=== PATIENT | male | born 1970 | race Caucasian/White ===

== ENCOUNTER 2016-04-18 09:30 | Inpatient (IN) | payer BC, OTHER ==
[2016-04-18 09:59] VITALS: BMI 26.3
[2016-04-18] MEDS ORDERED: PNEUMOC 13-VAL CONJ-DIP CRM/PF 0.5 ML DISP.SYRIN IM ONE (10:50)
[2016-04-18] MEDS ORDERED: PNEUMOCOCCAL 23 VACCINE 0.5 ML VIAL IM ONE (12:00)
--- NOTE | 2016-04-18 12:36 | HP ---
COWS - Scale Resting Pulse: 1= MA 81-100 Sweatin=Flushed/Facial Moisture Restless Observation: 1= Difficult to Sit Still Pupil Size: 2= Moderately Dilated Bone or Joint Aches: 2= Severe Diffuse Aches Runny Nose/ Eye Tearin= Runny Nose/Eyes GI Upset > 30mins: 2= Nausea/Diarrhea Tremor Observation: 2= Slight Tremor Visible Yawning Observation: 1= 1-2x During Session Anxiety or Irritability: 2=Irritable/Anxious Goose Flesh Skin: 3=Piloerection COWS Score: 20 CIWA Score - CIWA Score Nausea/Vomitin Muscle Tremors: 4-Moderate,w/Arms Extend Anxiety: 4-Mod. Anxious/Guarded Agitation: 4-Moderately Restless Paroxysmal Sweats: 3 Orientation: 0-Oriented Tacttile Disturbances: 1-Very Mild Itch/Numbness Auditory Disturbances: 0-None Visual Disturbances: 0-None Headache: 0-None Present CIWA-Ar Total Score: 18 Admission ROS BHS - HPI Chief Complaint: WITHDRAWAL SX. Allergies/Adverse Reactions: Allergies Allergy/AdvReac Type Severity Reaction Status Date / Time Fish Containing Products Allergy Severe Difficulty Verified 04/18/16 10:27 Breathing History of Present Illness: 45 Y/O MAN WITH A LONG HX. OF DRUG DEPENDENCE IS ADMITTED FOR DETOX. PT. HAS BEEN IN PREVIOUS DETOX, REPORTS 3 YRS. DRUG FREE. Exam Limitations: No Limitations - Ebola screening Have you traveled outside of the country in the last 21 days: No (N) Have you had contact with anyone from an Ebola affected area: No Have you been sick,other than usual withdrawal symptoms: No Do you have a fever: No - Review of Systems Constitutional: Diaphoresis EENT: reports: Nose Congestion Respiratory: reports: No Symptoms reported Cardiac: reports: No Symptoms Reported GI: reports: Nausea : reports: No Symptoms Reported Musculoskeletal: reports: Back Pain Integumentary: reports: Sweating Neuro: reports: Seizure, Tingling, Tremors Endocrine: reports: No Symptoms Reported Hematology: reports: No Symptoms Reported Psychiatric: reports: No Sypmtoms Reported Other Systems: Reviewed and Negative Patient History - Patient Medical History Hx Anemia: Yes (? ON FEOSOL HS) Hx Asthma: No Hx Chronic Obstructive Pulmonary Disease (COPD): No Hx Cancer: No Hx Cardiac Disorders: No Hx Congestive Heart Failure: No Hx Hypertension: No Hx Hypercholesterolemia: No Hx Pacemaker: No HX Cerebrovascular Accident: No Hx Seizures: Yes (r/t xanax use 10yrs ago) Hx Dementia: No Hx Diabetes: No Hx Gastrointestinal Disorders: No Hx Liver Disease: No Hx Genitourinary Disorders: No Hx Sexually Transmitted Disorders: No Hx Renal Disease (ESRD): No Hx Thyroid Disease: No Hx Human Immunodeficiency Virus (HIV): No Hx Hepatitis C: No (HEP B) Hx Depression: Yes Hx Suicide Attempt: No Hx Bipolar Disorder: No Hx Schizophrenia: No - Patient Surgical History Past Surgical History: No Hx Neurologic Surgery: No Hx Cataract Extraction: No Hx Cardiac Surgery: No Hx Lung Surgery: No Hx Breast Surgery: No Hx Breast Biopsy: No Hx Abdominal Surgery: No Hx Appendectomy: No Hx Cholecystectomy: No Hx Genitourinary Surgery: No Hx Section: No Hx Orthopedic Surgery: No Anesthesia Reaction: No - PPD History Previous Implant?: Yes Documented Results: Negative w/o proof Implanted On Prior [facility] Admission?: No PPD to be Administered?: Yes - Smoking Cessation Smoking history: Current every day smoker Have you smoked in the past 12 months: Yes Aproximately how many cigarettes per day: 20 Hx Chewing Tobacco Use: No Initiated information on smoking cessation: Yes 'Breaking Loose' booklet given: 04/18/16 - Substance & Tx. History Hx Alcohol Use: No Hx Substance Use: Yes Substance Use Type: Heroin, Tranquilizers Hx Substance Use Treatment: Yes (DETOX) - Substances Abused Heroin Route: Injection Frequency: Daily Amount used: 10 bags Age of first use: 32 Date of Last Use: 04/17/16 Alprazolam (Xanax) Route: Oral Frequency: Daily Amount used: 2mg pills Age of first use: 41 Date of Last Use: 04/17/16 Family Disease History - Family Disease History Family Disease History: Heart Disease: Grandparent (HTN), CA: Father (THROAT) Admission Physical Exam BHS - Vital Signs Vital Signs: Vital Signs - 24 hr 04/18/16 09:58 Temperature 96.5 F L Pulse Rate 84 Respiratory 20 Rate Blood Pressure 126/72 - Physical General Appearance: Yes: Tremorous, Irritable, Sweating, Anxious HEENTM: Yes: Nasal Congestion, Rhinorrhea Respiratory: Yes: Chest Non-Tender, Lungs Clear, Normal Breath Sounds Neck: Yes: Supple Breast: Yes: Breast Exam Deferred Cardiology: Yes: Regular Rhythm, Regular Rate, S1, S2 Abdominal: Yes: Normal Bowel Sounds, Non Tender, Soft Genitourinary: Yes: Within Normal Limits Back: Yes: Within Normal Limits Musculoskeletal: Yes: full range of Motion Extremities: Yes: Tremors Neurological: Yes: Fully Oriented, Alert Integumentary: Yes: Diaphoresis, Track [place] Lymphatic: Yes: Within Normal Limits - Diagnostic (1) Opioid dependence with withdrawal Current Visit: Yes Status: Acute (2) Sedative, hypnotic or anxiolytic dependence with withdrawal, uncomplicated Current Visit: Yes Status: Acute Cleared for Admission [facility] - Detox or Rehab [facility] Level of Care: Medically Managed Detox Regimen/Protocol: Methadone/Valium [facility] Breath Alcohol Content Breath Alcohol Content: 0 Urine Drug Screen - Results Drug Screen Negative: No Urine Drug Screen Results: MEENA-Cocaine, OPI-Opiates, TCA-Tricyclic Antidepress, OXY-Oxycodone
[2016-04-18] MEDS ORDERED: NICOTINE POLACRILEX 2 MG GUM BUC PRN (12:45)
[2016-04-18] MEDS ORDERED: LOPERAMIDE HCL 2 MG CAPSULE PO PRN (12:45)
[2016-04-18] MEDS ORDERED: ACETAMINOPHEN 325 MG TABLET (FP) PO PRN (12:45)
[2016-04-18] MEDS ORDERED: MAGNESIUM CITRATE 300 ML BOTTLE PO PRN (12:45)
[2016-04-18] MEDS ORDERED: IBUPROFEN 400 MG TABLET (FP) PO PRN (12:45)
[2016-04-18] MEDS ORDERED: guaiFENesin/D-METHORPHAN HB 10 ML UNIT-DOSE CUPS PO PRN (12:45)
[2016-04-18] MEDS ORDERED: MENTHOL/PHENOL 1 EACH UD MM PRN (12:45)
[2016-04-18] MEDS ORDERED: MAGNESIUM HYDROX 2400MG/30ML ORAL SUSPENSION 30 ML CUP PO PRN (12:45)
[2016-04-18] MEDS ORDERED: hydrOXYzine PAMOATE 50 MG CAPSULE (FP) PO PRN (12:45)
[2016-04-18] MEDS ORDERED: MAG HYDROX/AL HYDROX/SIMETH 30 ML UNIT-DOSE CUP PO PRN (12:45)
[2016-04-18] MEDS ORDERED: diazePAM 5 MG TABLET PO PRN (12:45)
[2016-04-18] MEDS ORDERED: P-EPHED 60MG/TRIPROLIDI 2.5MG TABLET PO PRN (12:45)
[2016-04-18 13:16] LABS: URINE APPEARANCE CLEAR; URINE BILIRUBIN NEGATIVE (NEGATIVE); URINE BLOOD NEGATIVE (NEGATIVE); URINE COLOR YELLOW; URINE GLUCOSE (UA) NEGATIVE (NEGATIVE); URINE KETONE TRACE (NEGATIVE); URINE LEUK ESTERASE NEGATIVE (NEGATIVE); URINE NITRITE NEGATIVE (NEGATIVE); URINE PROTEIN NEGATIVE (NEGATIVE); URINE UROBILINOGEN NEGATIVE E.U./dl (0.2-1.0)
[2016-04-18] MEDS ORDERED: diazePAM 5 MG TABLET PO ONE (13:30)
[2016-04-18] MEDS ORDERED: METHADONE HCL 10 MG TABLET (FOR DETOX USE ONLY) PO ONE ×2 (13:30→23:00)
[2016-04-18] MEDS: NICOTINE 21 MG/24 HOURS TOPICAL PATCH TD SCH (13:38)
[2016-04-18] MEDS: diazePAM 5 MG TABLET PO SCH ×2 (13:55→22:05)
[2016-04-18] MEDS: FERROUS SO4 325 MG TABLET (FP) PO SCH (22:05)
[2016-04-18] MEDS: THIAMINE HCL 100 MG TABLET (FP) PO SCH (22:05)
[2016-04-18] MEDS: diphenhydrAMINE HCL 50 MG CAPSULE PO PRN (22:06)
[2016-04-19] MEDS: diazePAM 5 MG TABLET PO SCH ×3 (05:41→22:10)
--- NOTE | 2016-04-19 09:35 | CONSULT ---
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 Smoking history: Current every day smoker. Have you smoked in the past 12 months: Yes. Aproximately how many cigarettes per day: 20. Hx Chewing Tobacco Use: No. Initiated information on smoking cessation: Yes. 'Breaking Loose' booklet given: 04/18/16. - Substance & Tx. History. Hx Alcohol Use: No. Hx Substance Use: Yes. Substance Use Type : Heroin, Tranquilizers. Hx Substance Use Treatment: Yes (DETOX). - Substances Abused. Heroin. Route: Injection. Frequency: Daily. Amount used: 10 bags. Age of first use: 32. Date of Last Use: 04/17/16. Alprazolam (Xanax). Route: Oral. Frequency: Daily. Amount used: 2mg pills. Age of first use: 41. Date of Last Use: 04/17/16 Medical History: Significant for history of Anemia, Substance-Induced seizure and Hepatitis B. Smokes cigarettes 1ppd Psychiatric History: His first psychiatric contact was in childhood for treatment of anxiety and ADHD. He was prescribed Ritalin but claims he was not taken it though her mother was giving it to him. Then in 2012 while admitted to [facility] for 3 months for inpatient rehab, he was treated for anxiety and insomnia with Buspar 15 mg po HS, Prozac 20 mg po daily, Seroquel 50 mg po HS and Trazadone 100 mg po HS. Reports that he continues to take these medications now prescribed by his PCP. Claims he last took then the day of admission. Denies previous psychiatric hospitalizaton or suicidal attempt Physical/Sexual Abuse/Trauma History: Denies history of physical, sexual abuse as well DV relationship Additional Comment: Reports history of 5 previous arrests including one felony conviction. Denies being on probation/parole at present Mental Status Exam - Mental Status Exam Alert and Oriented to: Time, Place, Person Cognitive Function: Fair Patient Appearance: Well Groomed Mood: Hopeful, Euthymic Patient Behavior: Cooperative Speech Pattern: Clear Voice Loudness: Normal Thought Process: Intact Thought Disorder: Not Present Hallucinations: Denies Suicidal Ideation: Denies Homicidal Ideation: Denies Insight/Judgement: Fair Sleep: Poorly Appetite: Fair Muscle strength/Tone: Normal Gait/Station: Normal Psychiatric Findings - Problem List ([place] 1, 2,3) (1) ADHD (attention deficit hyperactivity disorder) Current Visit: Yes Status: Acute (2) Anxiety disorder Current Visit: Yes Status: Acute (3) Substance-induced sleep disorder Current Visit: Yes Status: Acute (4) Sedative, hypnotic or anxiolytic dependence with withdrawal, unspecified Current Visit: Yes Status: Acute (5) Opioid dependence with withdrawal Current Visit: Yes Status: Acute (6) Hepatitis B Current Visit: Yes Status: Acute (7) Anemia Current Visit: Yes Status: Acute - Initial Treatment Plan Initial Treatment Plan: 1) Continue Buspar 15 mg po HS, Prozac 20 mg po daily, Seroquel 50 mg po HS and Trazadone 100 mg po HS. 2) Continue detoxification
[2016-04-19] MEDS ORDERED: METHADONE HCL 10 MG TABLET (FOR DETOX USE ONLY) PO SCH (10:00)
[2016-04-19] MEDS: PRENATAL VITAMINS W/ FOLIC ACID TABLET (FP) PO SCH (10:19)
[2016-04-19] MEDS: NICOTINE 21 MG/24 HOURS TOPICAL PATCH TD SCH (10:19)
[2016-04-19 10:32] LABS: MCH 30.3 pg (25.7-33.7); MCHC 33.5 g/dl (32.0-35.9); MEAN CELL VOLUME 90.3 fl (80-96); MEAN PLT VOLUME 9.9 fl (7.5-11.1); PLATELET COUNT 140 K/MM3 (134-434); RDW 13.6 % (11.9-15.9); WHITE BLOOD COUNT 6.4 K/mm3 (4.0-10.0)
[2016-04-19 11:03] LABS: ALBUMIN 3.7 g/dl (3.4-5.0); ALK PHOS 140 U/L (45-117); ANION GAP 9 (8-16); BILIRUBIN,TOTAL 0.5 mg/dL (0.2-1.0); CALCIUM 9.2 mg/dL (8.5-10.1); CO2 27 mmol/L (21-32); CREATININE 0.8 mg/dL (0.7-1.3); GLUCOSE,RANDOM 93 mg/dL (74-106); SGOT/AST 36 U/L (15-37); SGPT/ALT 46 U/L (12-78); TOT PROT 7.7 g/dl (6.4-8.2)
[2016-04-19] MEDS ORDERED: ONDANSETRON *ODT* 4 MG TABLET SL ONE (11:20)
[2016-04-19] MEDS ORDERED: ONDANSETRON *ODT* 4 MG TABLET SL PRN (11:20)
--- NOTE | 2016-04-19 11:24 | PN ---
S CIWA - CIWA Score Nausea/Vomitin Muscle Tremors: 3 Anxiety: 4-Mod. Anxious/Guarded Agitation: 4-Moderately Restless Paroxysmal Sweats: 3 Orientation: 0-Oriented Tacttile Disturbances: 0-None Auditory Disturbances: 0-None Visual Disturbances: 0-None Headache: 0-None Present CIWA-Ar Total Score: 19 BHS COWS - Scale Resting Pulse: 1= [place] 81-100 Sweatin=Flushed/Facial Moisture Restless Observation: 1= Difficult to Sit Still Pupil Size: 0= Normal to Room Light Bone or Joint Aches: 1= Mild Discomfort Runny Nose/ Eye Tearin= Runny Nose/Eyes GI Upset > 30mins: 3= Vomiting/Diarrhea Tremor Observation of Outstretched Hands: 2= Slight Tremor Visible Yawning Observation: 1= 1-2x During Session Anxiety or Irritability: 2=Irritable/Anxious Goose Flesh Skin: 0=Smooth Skin COWS Score: 15 BHS Progress Note (SOAP) Subjective: ANXIETY,TREMORS,SWEATING,,INTERRUPTED SLEEP,NAUSEA & VOMITING,RESTLESS. Objective: 04/19/16 11:23 Last Vital Signs Temp Pulse Resp BP Pulse Ox 97.5 F L 95 H 20 105/74 04/19/16 09:17 04/19/16 09:17 04/19/16 09:17 04/19/16 09:17 Laboratory Last Values WBC 6.4 K/mm3 (4.0-10.0) 04/19/16 06:30 RBC 4.40 M/mm3 (4.00-5.60) 04/19/16 06:30 Hgb 13.3 GM/dL (11.7-16.9) 04/19/16 06:30 Hct 39.8 % (35.4-49) 04/19/16 06:30 MCV 90.3 fl (80-96) 04/19/16 06:30 MCHC 33.5 g/dl (32.0-35.9) 04/19/16 06:30 RDW 13.6 % (11.9-15.9) 04/19/16 06:30 Plt Count 140 K/MM3 (134-434) 04/19/16 06:30 MPV 9.9 fl (7.5-11.1) 04/19/16 06:30 Sodium 139 mmol/L (136-145) 04/19/16 06:30 Potassium 4.3 mmol/L (3.5-5.1) 04/19/16 06:30 Chloride 103 mmol/L (98-107) 04/19/16 06:30 Carbon Dioxide 27 mmol/L (21-32) 04/19/16 06:30 Anion Gap 9 (8-16) 04/19/16 06:30 BUN 13 mg/dL (7-18) 04/19/16 06:30 Creatinine 0.8 mg/dL (0.7-1.3) 04/19/16 06:30 Creat Clearance w eGFR > 60 (>60) 04/19/16 06:30 Random Glucose 93 mg/dL (74-106) 04/19/16 06:30 Calcium 9.2 mg/dL (8.5-10.1) 04/19/16 06:30 Total Bilirubin 0.5 mg/dL (0.2-1.0) 04/19/16 06:30 AST 36 U/L (15-37) 04/19/16 06:30 ALT 46 U/L (12-78) 04/19/16 06:30 Alkaline Phosphatase 140 U/L (45-117) H 04/19/16 06:30 Total Protein 7.7 g/dl (6.4-8.2) 04/19/16 06:30 Albumin 3.7 g/dl (3.4-5.0) 04/19/16 06:30 Urine Color Yellow 04/18/16 13:00 Urine Appearance Clear 04/18/16 13:00 Urine pH 5.0 (5.0-8.0) 04/18/16 13:00 Ur Specific [place] 1.023 (1.001-1.035) 04/18/16 13:00 Urine Protein Negative (NEGATIVE) 04/18/16 13:00 Urine Glucose (UA) Negative (NEGATIVE) 04/18/16 13:00 Urine Ketones Trace (NEGATIVE) H 04/18/16 13:00 Urine Blood Negative (NEGATIVE) 04/18/16 13:00 Urine Nitrite Negative (NEGATIVE) 04/18/16 13:00 Urine Bilirubin Negative (NEGATIVE) 04/18/16 13:00 Urine Urobilinogen Negative E.U./dl (0.2-1.0) 04/18/16 13:00 Ur Leukocyte Esterase Negative (NEGATIVE) 04/18/16 13:00 LABS NOTED Assessment: 04/19/16 11:23 WITHDRAWAL SX. Plan: CONTINUE DETOX
[2016-04-19 11:36] LABS: SICKLE CELL SCREEN NEGATIVE (NEGATIVE)
[2016-04-19] MEDS ORDERED: INFLUENZA VACCINE 45 MCG/0.5 ML (MDV 16-17) IM ONE (12:00)
--- NOTE | 2016-04-19 16:26 | EKG ---
Test Reason : Blood Pressure : / mmHG Vent. Rate : 081 BPM Atrial Rate : 081 BPM P-R Int : 158 ms QRS Dur : 092 ms QT Int : 364 ms P-R-T Axes : 025 068 016 degrees QTc Int : 422 ms NORMAL SINUS RHYTHM NORMAL ECG NO PREVIOUS ECGS AVAILABLE Confirmed by JEN HOYT MD ([id number]) on 04/19/2016 4:26:15 PM Referred By: Confirmed By:JEN HOYT MD
[2016-04-19] MEDS: traZODone HCL 100 MG TABLET (FP) PO SCH (22:10)
[2016-04-19] MEDS: FLUoxetine HCL 20 MG CAPSULE (FP) PO SCH (22:11)
[2016-04-19] MEDS: diphenhydrAMINE HCL 50 MG CAPSULE PO PRN (22:13)
[2016-04-19] MEDS: THIAMINE HCL 100 MG TABLET (FP) PO SCH (22:14)
[2016-04-19] MEDS: FERROUS SO4 325 MG TABLET (FP) PO SCH (22:14)
[2016-04-20] MEDS ORDERED: TRIMETHOBENZAMIDE HCL 200MG/2ML INJ IM PRN ×2 (09:25→10:29)
[2016-04-20] MEDS: PRENATAL VITAMINS W/ FOLIC ACID TABLET (FP) PO SCH (10:08)
[2016-04-20] MEDS: METHADONE HCL 5 MG TABLET (FOR DETOX USE ONLY) PO SCH (10:10)
[2016-04-20] MEDS: NICOTINE 21 MG/24 HOURS TOPICAL PATCH TD SCH (10:10)
[2016-04-20] MEDS: diazePAM 5 MG TABLET PO SCH ×2 (10:10→22:03)
--- NOTE | 2016-04-20 15:16 | PN ---
[facility] CIWA - CIWA Score Nausea/Vomitin-No Nausea/No Vomiting Muscle Tremors: 2 Anxiety: 4-Mod. Anxious/Guarded Agitation: 3 Paroxysmal Sweats: 3 Orientation: 0-Oriented Tacttile Disturbances: 0-None Auditory Disturbances: 0-None Visual Disturbances: 0-None Headache: 0-None Present CIWA-Ar Total Score: 12 BHS COWS - Scale Resting Pulse: 1= [place] 81-100 Sweatin=Flushed/Facial Moisture Restless Observation: 1= Difficult to Sit Still Pupil Size: 0= Normal to Room Light Bone or Joint Aches: 2= Severe Diffuse Aches Runny Nose/ Eye Tearin= Runny Nose/Eyes GI Upset > 30mins: 2= Nausea/Diarrhea Tremor Observation of Outstretched Hands: 2= Slight Tremor Visible Yawning Observation: 1= 1-2x During Session Anxiety or Irritability: 2=Irritable/Anxious Goose Flesh Skin: 0=Smooth Skin COWS Score: 15 S Progress Note (SOAP) Subjective: SWEATING,INTERRUPTED SLEEP,RESTLESS,TREMORS,ANXIETY,MUSCLE ACHES. Objective: 04/20/16 15:15 Vital Signs - 8 hr 04/20/16 04/20/16 09:48 14:15 Temperature 97.2 F L 97.7 F Pulse Rate 81 91 H Respiratory 18 18 Rate Blood Pressure 125/76 109/78 Laboratory Tests 04/18/16 04/19/16 04/19/16 13:00 06:30 06:30 WBC 6.4 RBC 4.40 Hgb 13.3 Hct 39.8 MCV 90.3 MCHC 33.5 RDW 13.6 Plt Count 140 MPV 9.9 Sickle Cell Screen Negative Sodium 139 Potassium 4.3 Chloride 103 Carbon Dioxide 27 Anion Gap 9 BUN 13 Creatinine 0.8 Creat Clearance w eGFR > 60 Random Glucose 93 Calcium 9.2 Total Bilirubin 0.5 AST 36 ALT 46 Alkaline Phosphatase 140 H Total Protein 7.7 Albumin 3.7 Urine Color Yellow Urine Appearance Clear Urine pH 5.0 Ur Specific [place] 1.023 Urine Protein Negative Urine Glucose (UA) Negative Urine Ketones Trace H Urine Blood Negative Urine Nitrite Negative Urine Bilirubin Negative Urine Urobilinogen Negative Ur Leukocyte Esterase Negative RPR Titer 04/19/16 06:30 WBC RBC Hgb Hct MCV MCHC RDW Plt Count MPV Sickle Cell Screen Sodium Potassium Chloride Carbon Dioxide Anion Gap BUN Creatinine Creat Clearance w eGFR Random Glucose Calcium Total Bilirubin AST ALT Alkaline Phosphatase Total Protein Albumin Urine Color Urine Appearance Urine pH Ur Specific [place] Urine Protein Urine Glucose (UA) Urine Ketones Urine Blood Urine Nitrite Urine Bilirubin Urine Urobilinogen Ur Leukocyte Esterase RPR Titer Nonreactive LABS NOTED Assessment: 04/20/16 15:15 WITHDRAWAL SX. Plan: CONTINUE DETOX
[2016-04-20] MEDS: THIAMINE HCL 100 MG TABLET (FP) PO SCH (22:02)
[2016-04-20] MEDS: traZODone HCL 100 MG TABLET (FP) PO SCH (22:03)
[2016-04-20] MEDS: FERROUS SO4 325 MG TABLET (FP) PO SCH (22:03)
[2016-04-20] MEDS: FLUoxetine HCL 20 MG CAPSULE (FP) PO SCH (22:03)
[2016-04-20] MEDS: diphenhydrAMINE HCL 50 MG CAPSULE PO PRN (22:04)
[2016-04-21] MEDS: METHADONE HCL 5 MG TABLET (FOR DETOX USE ONLY) PO SCH (10:03)
[2016-04-21] MEDS: diazePAM 5 MG TABLET PO SCH ×2 (10:03→22:08)
[2016-04-21] MEDS: PRENATAL VITAMINS W/ FOLIC ACID TABLET (FP) PO SCH (10:03)
[2016-04-21] MEDS: NICOTINE 21 MG/24 HOURS TOPICAL PATCH TD SCH (10:03)
--- NOTE | 2016-04-21 11:18 | PN ---
BHS Progress Note (SOAP) Subjective: SWEATING,NAUSEA/VOMITING,INTERRUPTED SLEEP,RESTLESS Objective: 04/21/16 11:18 Vital Signs - 8 hr 04/21/16 04/21/16 04/21/16 03:22 07:28 09:54 Temperature 97.4 F L Pulse Rate 120 H 104 H Respiratory 18 18 Rate Blood Pressure 112/74 114/80 Laboratory Tests 04/18/16 04/19/16 04/19/16 13:00 06:30 06:30 WBC 6.4 RBC 4.40 Hgb 13.3 Hct 39.8 MCV 90.3 MCHC 33.5 RDW 13.6 Plt Count 140 MPV 9.9 Sickle Cell Screen Negative Sodium 139 Potassium 4.3 Chloride 103 Carbon Dioxide 27 Anion Gap 9 BUN 13 Creatinine 0.8 Creat Clearance w eGFR > 60 Random Glucose 93 Calcium 9.2 Total Bilirubin 0.5 AST 36 ALT 46 Alkaline Phosphatase 140 H Total Protein 7.7 Albumin 3.7 Urine Color Yellow Urine Appearance Clear Urine pH 5.0 Ur Specific [place] 1.023 Urine Protein Negative Urine Glucose (UA) Negative Urine Ketones Trace H Urine Blood Negative Urine Nitrite Negative Urine Bilirubin Negative Urine Urobilinogen Negative Ur Leukocyte Esterase Negative RPR Titer 04/19/16 06:30 WBC RBC Hgb Hct MCV MCHC RDW Plt Count MPV Sickle Cell Screen Sodium Potassium Chloride Carbon Dioxide Anion Gap BUN Creatinine Creat Clearance w eGFR Random Glucose Calcium Total Bilirubin AST ALT Alkaline Phosphatase Total Protein Albumin Urine Color Urine Appearance Urine pH Ur Specific [place] Urine Protein Urine Glucose (UA) Urine Ketones Urine Blood Urine Nitrite Urine Bilirubin Urine Urobilinogen Ur Leukocyte Esterase RPR Titer Nonreactive LABS NOTED Assessment: 04/21/16 11:18 WITHDRAWAL SX. Plan: CONTINUE DETOX
[2016-04-21] MEDS: THIAMINE HCL 100 MG TABLET (FP) PO SCH (22:07)
[2016-04-21] MEDS: FLUoxetine HCL 20 MG CAPSULE (FP) PO SCH (22:07)
[2016-04-21] MEDS: traZODone HCL 100 MG TABLET (FP) PO SCH (22:08)
[2016-04-21] MEDS: diphenhydrAMINE HCL 50 MG CAPSULE PO PRN (22:08)
[2016-04-21] MEDS: FERROUS SO4 325 MG TABLET (FP) PO SCH (22:08)
[2016-04-22] MEDS ORDERED: diazePAM 5 MG TABLET PO SCH (10:00)
[2016-04-22] MEDS ORDERED: METHADONE HCL 10 MG TABLET (FOR DETOX USE ONLY) PO SCH (10:00)
[2016-04-22] MEDS: PRENATAL VITAMINS W/ FOLIC ACID TABLET (FP) PO SCH (10:05)
[2016-04-22] MEDS: NICOTINE 21 MG/24 HOURS TOPICAL PATCH TD SCH (10:07)
--- NOTE | 2016-04-22 15:57 | PN ---
BHS Progress Note (SOAP) Subjective: nausea, sweats, interrupted sleep, anxiety, back pain persist Objective: 04/22/16 15:56 Vital Signs - 24 hr 04/21/16 04/21/16 04/22/16 17:52 21:47 00:24 Temperature 96.9 F L 96.6 F L Pulse Rate 72 89 Respiratory 19 19 18 Rate Blood Pressure 87/52 108/73 04/22/16 04/22/16 04/22/16 03:26 06:03 09:31 Temperature 96.3 F L 96.0 F L Pulse Rate 93 H 94 H Respiratory 18 16 20 Rate Blood Pressure 99/67 108/74 04/22/16 13:26 Temperature 96.0 F L Pulse Rate 93 H Respiratory 18 Rate Blood Pressure 101/63 Assessment: 04/22/16 15:56 tachycardia, withdrawal sx Plan: cont detox, encourage fluids, ambualtion, symptomatic relief of withdrawal sx
[2016-04-22] MEDS: FERROUS SO4 325 MG TABLET (FP) PO SCH (22:14)
[2016-04-22] MEDS: FLUoxetine HCL 20 MG CAPSULE (FP) PO SCH (22:14)
[2016-04-22] MEDS: diphenhydrAMINE HCL 50 MG CAPSULE PO PRN (22:14)
[2016-04-22] MEDS: traZODone HCL 100 MG TABLET (FP) PO SCH (22:14)
[2016-04-22] MEDS: THIAMINE HCL 100 MG TABLET (FP) PO SCH (22:14)
[2016-04-23] MEDS ORDERED: METHADONE HCL 5 MG TABLET (FOR DETOX USE ONLY) PO SCH (06:00)
[2016-04-23 06:20] VITALS: BP 104/71; PULSE 80; TEMP 96.1
--- NOTE | 2016-04-23 11:53 | DS ---
[facility] Detox Discharge Summary Admission Date: 04/18/16 Discharge Date: 04/23/16 - History Present History: Cannabis Dependence, Opioid Dependence, Sedative Dependence Pertinent Past History: ADHD, Anemia, Hep B - Physical Exam Results Vital Signs: Vital Signs Temperature 96.1 F L 04/23/16 06:19 Pulse Rate 80 04/23/16 06:19 Respiratory Rate 18 04/23/16 06:19 Blood Pressure 104/71 04/23/16 06:19 O2 Sat by Pulse Oximetry (%) Pertinent Admission Physical Exam Findings: withdrawal sx Laboratory Last Values WBC 6.4 K/mm3 (4.0-10.0) 04/19/16 06:30 RBC 4.40 M/mm3 (4.00-5.60) 04/19/16 06:30 Hgb 13.3 GM/dL (11.7-16.9) 04/19/16 06:30 Hct 39.8 % (35.4-49) 04/19/16 06:30 MCV 90.3 fl (80-96) 04/19/16 06:30 MCHC 33.5 g/dl (32.0-35.9) 04/19/16 06:30 RDW 13.6 % (11.9-15.9) 04/19/16 06:30 Plt Count 140 K/MM3 (134-434) 04/19/16 06:30 MPV 9.9 fl (7.5-11.1) 04/19/16 06:30 Sickle Cell Screen Negative (NEGATIVE) 04/19/16 06:30 Sodium 139 mmol/L (136-145) 04/19/16 06:30 Potassium 4.3 mmol/L (3.5-5.1) 04/19/16 06:30 Chloride 103 mmol/L (98-107) 04/19/16 06:30 Carbon Dioxide 27 mmol/L (21-32) 04/19/16 06:30 Anion Gap 9 (8-16) 04/19/16 06:30 BUN 13 mg/dL (7-18) 04/19/16 06:30 Creatinine 0.8 mg/dL (0.7-1.3) 04/19/16 06:30 Creat Clearance w eGFR > 60 (>60) 04/19/16 06:30 Random Glucose 93 mg/dL (74-106) 04/19/16 06:30 Calcium 9.2 mg/dL (8.5-10.1) 04/19/16 06:30 Total Bilirubin 0.5 mg/dL (0.2-1.0) 04/19/16 06:30 AST 36 U/L (15-37) 04/19/16 06:30 ALT 46 U/L (12-78) 04/19/16 06:30 Alkaline Phosphatase 140 U/L (45-117) H 04/19/16 06:30 Total Protein 7.7 g/dl (6.4-8.2) 04/19/16 06:30 Albumin 3.7 g/dl (3.4-5.0) 04/19/16 06:30 Urine Color Yellow 04/18/16 13:00 Urine Appearance Clear 04/18/16 13:00 Urine pH 5.0 (5.0-8.0) 04/18/16 13:00 Ur Specific [place] 1.023 (1.001-1.035) 04/18/16 13:00 Urine Protein Negative (NEGATIVE) 04/18/16 13:00 Urine Glucose (UA) Negative (NEGATIVE) 04/18/16 13:00 Urine Ketones Trace (NEGATIVE) H 04/18/16 13:00 Urine Blood Negative (NEGATIVE) 04/18/16 13:00 Urine Nitrite Negative (NEGATIVE) 04/18/16 13:00 Urine Bilirubin Negative (NEGATIVE) 04/18/16 13:00 Urine Urobilinogen Negative E.U./dl (0.2-1.0) 04/18/16 13:00 Ur Leukocyte Esterase Negative (NEGATIVE) 04/18/16 13:00 RPR Titer Nonreactive (NONREACTIVE) 04/19/16 06:30 Labs noted - Treatment Hospital Course: Detox Protocol Followed, Detoxed Safely, Responded well, Discharged Condition Good - Medication Discharge Medications: Ambulatory Orders Buspirone HCl 15 mg PO HS 04/18/16 Cholecalciferol (Vitamin D3) [Vitamin D3 -] unit PO DAILY 04/18/16 Ferrous Sulfate 325 mg PO HS 04/18/16 Fluoxetine HCl 20 mg PO HS 04/18/16 Quetiapine Fumarate "Xr" [Seroquel Xr -] 50 mg PO HS 04/18/16 Trazodone HCl 100 mg PO HS 04/18/16 - Diagnosis (1) ADHD (attention deficit hyperactivity disorder) Status: Chronic (2) Anemia Status: Acute Qualifiers: Anemia type: iron deficiency Iron deficiency anemia type: other iron deficiency Qualified Code(s): D50.8 - Other iron deficiency anemias (3) Anxiety disorder Status: Acute Qualifiers: Anxiety disorder type: generalized anxiety disorder Qualified Code(s ): F41.1 - Generalized anxiety disorder (4) Hepatitis B Status: Chronic Qualifiers: Viral hepatitis chronicity: chronic (5) Opioid dependence with withdrawal Status: Acute (6) Sedative, hypnotic or anxiolytic dependence with withdrawal, unspecified Status: Acute (7) Substance-induced sleep disorder Status: Acute - AMA Did Patient Leave Against Medical Advice: No
== END 2016-04-23 08:53 | disposition home or self-care (01) | DRG 897 ==
LOC: YASAS 09:30 → Y3N 11:01
PROVIDERS: ADMIT Internal Medicine; ATTEND Internal Medicine
PROC: HZ2ZZZZ Detoxification Services for Substance Abuse Treatment (ICD-10-PCS; principal; 2016-04-18)
DX: F11.23 Opioid dependence with withdrawal (principal); F19.282 Other psychoactive substance dependence with psychoactive substance-induced sleep disorder; B18.1 Chronic viral hepatitis B without delta-agent; F13.230 Sedative, hypnotic or anxiolytic dependence with withdrawal, uncomplicated; F17.210 Nicotine dependence, cigarettes, uncomplicated; F90.9 Attention-deficit hyperactivity disorder, unspecified type; F41.1 Generalized anxiety disorder; D50.8 Other iron deficiency anemias; R00.0 Tachycardia, unspecified; Z86.69 Personal history of other diseases of the nervous system and sense organs
CPT/HCPCS: 36415; 80053; 81003; 85027; 85660; 86593; 93005; 93010